=== PATIENT | male | born 1995 | race African-American/Black ===

== ENCOUNTER 2016-08-30 00:23 | Emergency (ER) | payer OTHER ==
[~2016-08-30] VITALS: Ht 170.2 cm; Wt 70.3 kg
[~2016-08-30 00:23] MED LIST: ACETAMINOPHEN-1 EAC1 PO; AMOXICILLIN500 M1 PO; DELTASONE20 MG PO; NAPROSYN500 MG PO; NOHOMEMEDICATIONS; PENICILLIN V P500 MG PO
[2016-08-30] MEDS ORDERED: IBUPROFEN 800800 M1 PO (01:35)
[2016-08-30 01:49] VITALS: BP 104/59
== END 2016-08-30 01:53 | disposition home or self-care (01) ==
LOC: ER 00:23
DX: S93.402A Sprain of unspecified ligament of left ankle, initial encounter (principal); X58.XXXA Exposure to other specified factors, initial encounter; Y93.64 Activity, baseball; Y92.320 Baseball field as the place of occurrence of the external cause; Y99.8 Other external cause status